=== PATIENT | female | born 1950 | race African-American/Black ===

== ENCOUNTER 2020-07-16 18:00 | Emergency (ER) | payer OTHER ==
[~2020-07-16] VITALS: Ht 157.5 cm; Wt 68.0 kg
[~2020-07-16 18:00] MED LIST: IMITREX; [UNRECOGNIZED DRUG - OTHER]
[2020-07-16 18:12] VITALS: BP 144/101
[2020-07-16] MEDS ORDERED: MORPHINE SULFATE 4 MG/ML CPJ (NOT FOR IM USE) IV STA (20:50)
[2020-07-16] MEDS ORDERED: ONDANSETRON HCL 4MG/2ML INJ IV STA (20:50)
== END 2020-07-16 21:59 | disposition left against medical advice (07) ==
LOC: ER 18:00
DX: R10.9 Unspecified abdominal pain (principal); R42 Dizziness and giddiness; Z53.21 Procedure and treatment not carried out due to patient leaving prior to being seen by health care provider
CPT/HCPCS: 93005